=== PATIENT | female | born 1965 | race Caucasian/White ===

== ENCOUNTER 2016-07-17 08:49 | Emergency (ER) | payer MEDICARE, MEDICAID ==
[~2016-07-17] VITALS: Ht 165.1 cm; Wt 74.4 kg
[2016-07-17] MEDS ORDERED: QUETIAPINE FUMA25 MG PO (08:56)
[2016-07-17] MEDS ORDERED: DOCUSATE SODIU250 MG PO (08:57)
[2016-07-17] MEDS ORDERED: BENZTROPINE1 MG PO (08:57)
[2016-07-17] MEDS ORDERED: HALOPERIDOL 5MG.5 MG PO (08:58)
[2016-07-17] MEDS ORDERED: OMEPRAZOLE20 MG PO (08:58)
[2016-07-17] MEDS ORDERED: PAROXETINE10 M1 PO (08:59)
[2016-07-17] MEDS ORDERED: QUETIAPINE FUM200 MG PO (08:59)
[2016-07-17] MEDS ORDERED: QUETIAPINE FUM300 M1 PO (09:00)
--- NOTE | 2016-07-17 09:00 | Emergency Room Report ---
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 N Clinical Suspician of Infection? N Mental Status: 1 - Regular (Normal Baseline) Sepsis Risk:Low Sepsis Risk Have you (or family members/close friends) recently traveled outside the [place]? N If Yes, where/when: Have you had exposure to infectious disease within the past month? N TB? Other? Specify: Comment The patient is brought in by ambulance from [facility] with complaints of facial swelling. The patient states that her lip is "busted" since yesterday. She says it was hurting, but the pain is gone now. No fever. She is reported to have had a blister on her lip yesterday. She denies any prior history of fever blisters or cold sores. No difficulty with swallowing or breathing. ALLERGIES Coded Allergies: No Known Allergies (07/17/16) Home Medications Reported Medications Quetiapine Fumarate (Quetiapine 25MG) 25 MG PO Q4HP PRN AGITATION BENZTROPINE MESYLATE (Benztropine 1MG Tab) 1 MG PO DAILY Docusate Sodium 250 MG PO DAILY Haloperidol (Haloperidol 5MG. Tablet) 5 MG PO BID Omeprazole (Omeprazole 20MG) 20 MG PO DAILY PAROXETINE HCL (Paroxetine) 10 MG PO QHS Quetiapine Fumarate (Quetiapine 200MG) 200 MG PO 1400 Quetiapine Fumarate 300 MG PO BID History Medical History General CAD? No Angina: No [place]: No Hypertension? No Hyperlipidemia? No CHF? No DVT? No PE? No COPD? No Asthma? No Anemia? No GERD? Yes Gastric ulcers? No GI Bleed? No Hernia? No Thyroid Problems? No Hypothyroidism? No CVA? No Seizures? No Diabetes? No Renal Insuffiency? No End Stage Renal Disease? No UTI? No Stones? No BPH? No GB Disease: No Nephritic Syndrome? No Asplenia? No Hepatitis? No Sickle Cell Disease? No Arthritis? No Migraines? No Cataracts? No Glaucoma? No MRSA? No HIV? No TB? No Anxiety? Yes Depression? Yes Cancer? No More? 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 Physical Exam Vital Signs Vital Signs Date Time Temp Pulse Resp B/P Pulse O2 O2 Flow FiO2 Ox Delivery Rate 07/17 0850 98.0 92 18 109/56 96 General Appearance normal appearance, Ambulatory Ear, Nose, Throat she has a fissure of the central portion of her lower lip. Adjacent to it there is one small vesicle. There is mild edema and erythema of her lower lip with mild tenderness. There is a small scab, 2 mm, on her cutaneous portion upper lip with some minimal surrounding erythema., no intraoral lesions. No swelling of the tongue or mucous membranes. No elevation of the tongue. Airway is patent. No submandibular swelling. Trachea midline. No cervical adenopathy. Respiratory Status No: respiratory distress. 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 No Departure Departure Disposition DC Home or Self Care(routine) Clinical Impression Primary Impression: Cellulitis, lip Condition STABLE Referrals Asher Cintron (PCP) Patient Instructions DI for Cellulitis -- Adult Additional Instructions Return to the emergency Department if fever greater than 101 degrees, increased swelling of face or mouth, or difficulty breathing or swallowing. Prescriptions Current Visit Scripts Clindamycin Hcl (Clindamycin 300MG) 300 MG PO QID #40 CAP MUPIROCIN 2% (Bactroban Oint) 1 NAYELY TP TID #1 TUBE ED Critical Care Critical Care No at 0911
--- NOTE | 2016-07-17 09:00 | Emergency Room Report ---
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 N Clinical Suspician of Infection? N Mental Status: 1 - Regular (Normal Baseline) Sepsis Risk:Low Sepsis Risk Have you (or family members/close friends) recently traveled outside the [place]? N If Yes, where/when: Have you had exposure to infectious disease within the past month? N TB? Other? Specify: Comment The patient is brought in by ambulance from [facility] with complaints of facial swelling. The patient states that her lip is "busted" since yesterday. She says it was hurting, but the pain is gone now. No fever. She is reported to have had a blister on her lip yesterday. She denies any prior history of fever blisters or cold sores. No difficulty with swallowing or breathing. ALLERGIES Coded Allergies: No Known Allergies (07/17/16) Home Medications Reported Medications Quetiapine Fumarate (Quetiapine 25MG) 25 MG PO Q4HP PRN AGITATION BENZTROPINE MESYLATE (Benztropine 1MG Tab) 1 MG PO DAILY Docusate Sodium 250 MG PO DAILY Haloperidol (Haloperidol 5MG. Tablet) 5 MG PO BID Omeprazole (Omeprazole 20MG) 20 MG PO DAILY PAROXETINE HCL (Paroxetine) 10 MG PO QHS Quetiapine Fumarate (Quetiapine 200MG) 200 MG PO 1400 Quetiapine Fumarate 300 MG PO BID History Medical History General CAD? No Angina: No [place]: No Hypertension? No Hyperlipidemia? No CHF? No DVT? No PE? No COPD? No Asthma? No Anemia? No GERD? Yes Gastric ulcers? No GI Bleed? No Hernia? No Thyroid Problems? No Hypothyroidism? No CVA? No Seizures? No Diabetes? No Renal Insuffiency? No End Stage Renal Disease? No UTI? No Stones? No BPH? No GB Disease: No Nephritic Syndrome? No Asplenia? No Hepatitis? No Sickle Cell Disease? No Arthritis? No Migraines? No Cataracts? No Glaucoma? No MRSA? No HIV? No TB? No Anxiety? Yes Depression? Yes Cancer? No More? 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 Physical Exam Vital Signs Vital Signs Date Time Temp Pulse Resp B/P Pulse O2 O2 Flow FiO2 Ox Delivery Rate 07/17 0850 98.0 92 18 109/56 96 General Appearance normal appearance, Ambulatory Ear, Nose, Throat she has a fissure of the central portion of her lower lip. Adjacent to it there is one small vesicle. There is mild edema and erythema of her lower lip with mild tenderness. There is a small scab, 2 mm, on her cutaneous portion upper lip with some minimal surrounding erythema., no intraoral lesions. No swelling of the tongue or mucous membranes. No elevation of the tongue. Airway is patent. No submandibular swelling. Trachea midline. No cervical adenopathy. Respiratory Status No: respiratory distress. 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 No Departure Departure Disposition DC Home or Self Care(routine) Clinical Impression Primary Impression: Cellulitis, lip Condition STABLE Referrals Asher Cintron (PCP) Patient Instructions DI for Cellulitis -- Adult Additional Instructions Return to the emergency Department if fever greater than 101 degrees, increased swelling of face or mouth, or difficulty breathing or swallowing. Prescriptions Current Visit Scripts Clindamycin Hcl (Clindamycin 300MG) 300 MG PO QID #40 CAP MUPIROCIN 2% (Bactroban Oint) 1 NAYELY TP TID #1 TUBE ED Critical Care Critical Care No at 0911
[2016-07-17] MEDS ORDERED: BACTROBAN2% TP (09:10)
[2016-07-17] MEDS ORDERED: CLINDAMYCIN HC300 MG PO (09:10)
[2016-07-17 09:38] VITALS: BP 109/56
== END 2016-07-17 09:39 | disposition home or self-care (01) ==
LOC: ER 08:49
DX: K13.0 Diseases of lips (principal); Z72.0 Tobacco use; F20.9 Schizophrenia, unspecified; F41.8 Other specified anxiety disorders; K21.9 Gastro-esophageal reflux disease without esophagitis